=== PATIENT | male | born 1995 | race Caucasian/White ===

== ENCOUNTER 2019-12-21 09:22 | Emergency (ER) | payer OTHER ==
[~2019-12-21] VITALS: Ht 182.8 cm; Wt 142.8 kg
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
[2019-12-21 09:47] VITALS: BP 156/87
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
== END 2019-12-21 10:52 | disposition home or self-care (01) ==
LOC: ER FS 09:23
DX: S16.1XXA Strain of muscle, fascia and tendon at neck level, initial encounter (principal); S29.012A Strain of muscle and tendon of back wall of thorax, initial encounter; E66.9 Obesity, unspecified; V89.2XXA Person injured in unspecified motor-vehicle accident, traffic, initial encounter
CPT/HCPCS: 72040; 72080